=== PATIENT | male | born 1995 | race Caucasian/White ===

== ENCOUNTER 2020-06-30 13:29 | Emergency (ER) | payer OTHER ==
[~2020-06-30] VITALS: Ht 180.3 cm; Wt 77.1 kg
[2020-06-30 13:49] VITALS: BP 127/75
[2020-06-30] MEDS ORDERED: Surgicel 4in x 8in TOPIC ONE (14:00)
--- NOTE | 2020-06-30 14:25 | Emergency Room Report ---
History of Present Illness General Chief Complaint: Upper Extremity Injury Source: Patient Present Illness HPI 25-year-old male with no significant past medical history here with depression injury of the left fifth finger that happened earlier today at work. Avulsion of nail noted. Has full range of motion of the affected side. Denies any tingling or numbness. Has not taken medication for symptom relief. Is not taking any blood thinners. Has full strength in the upper extremities. Is neurovascularly intact. Not up-to-date with tetanus shot and received a tetanus shot today Allergies: Coded Allergies: PINEAPPLE (Verified Allergy, Mild, 06/30/20) COVID-19 Screening Contact w/high risk pt: No Experienced COVID-19 symptoms?: No COVID-19 Testing performed UNARMED SECURITY OFFICER: No Patient History Past Medical History: see triage record Past Surgical History: none Pertinent Family History: none Immunizations: other - tdap today Reviewed Nursing Documentation: PMH: Agreed; PSxH: Agreed Nursing Documentation-PMH Past Medical History: No Stated History Review of Systems All Other Systems: negative except mentioned in HPI Physical Exam Vital Signs Date Time Temp Pulse Resp B/P (MAP) Pulse Ox O2 Delivery O2 Flow Rate FiO2 06/30/20 13:42 98.8 78 16 132/76 (94) 100 Room Air Sp02 EP Interpretation: reviewed, normal General Appearance: no apparent distress, alert, GCS 15, non-toxic Head: normocephalic, atraumatic Eyes: bilateral eye normal inspection, bilateral eye PERRL ENT: hearing grossly normal, normal pharynx, no angioedema, normal voice Neck: full range of motion, supple/symm/no masses Respiratory: chest non-tender, lungs clear, normal breath sounds, speaking full sentences Cardiovascular #1: regular rate, rhythm, no edema Cardiovascular #2: 2+ radial (R), 2+ radial (L) Gastrointestinal: soft Rectal: deferred Musculoskeletal: back normal, tender - Left fifth finger at PIP Neurologic: alert, motor strength/tone normal, oriented x3, sensory intact, responsive, speech normal Psychiatric: judgement/insight normal, memory normal, mood/affect normal, no suicidal/homicidal ideation Skin: laceration - Avulsion laceration left fifth finger Lymphatic: no adenopathy Procedures Laceration/Wound Repair Laceration/Wound Repair : Consent: Verbal Wound Location: upper extremity - Left fifth finger Wound's Depth, Shape: nail-avulsed Wound Length (cm): 1 Betadine Prep?: Yes Wound Repaired With: Dermabond Layer Closure?: Yes Sterile Dressing Applied?: Yes Splint Applied?: Yes Type of Splint Applied: Mental Sling Applied?: No Patient Tolerated: Well Complications: None Medical Decision Making PA Attestation All diagnoses and treatment plans were reviewed and discussed with my supervising physician Dr. Hooker Diagnostic Impression: Primary Impression: Avulsion fracture of distal phalanx of finger Additional Impression: Finger laceration ER Course 25-year-old male with no significant past medical history here with depression injury of the left fifth finger that happened earlier today at work. Avulsion of nail noted. Has full range of motion of the affected side. Denies any tingling or numbness. Has not taken medication for symptom relief. Is not taking any blood thinners. Has full strength in the upper extremities. Is neurovascularly intact. Not up-to-date with tetanus shot and received a tetanus shot today Ddx considered but are not limited to : Superficial laceration, deep laceration, tendon involvement with laceration, laceration with foreign body, finger sprain versus fracture Vital signs: are WNL, pt. is afebrile H&PE are most consistent with: Avulsion fracture distal phalanx of finger, finger laceration ORDERS: Finger x-ray, Augmentin, ibuprofen ED INTERVENTIONS: Wound closure, splint applied DISCHARGE: At this time pt. is stable for d/c to home. Will provide printed patient care instructions, and any necessary prescriptions. Care plan and follow up instructions have been discussed with the patient prior to discharge. Patient to follow-up primary doctor and extension service specialist, take medication as directed, if worsening symptoms return GENERAL: This is a well-nourished, well-developed patient, in no apparent distress. Emergency room Other X-Ray Diagnostic Results Other X-Ray Diagnostic Results : X-Ray ordered: Left finger # of Views/Limited Vs Complete: 3 View Indication: Pain EP Interpretation: Yes GRACE Xray: Interpretation reviewed, by supervising MD, and agrees with findings. Interpretation: other - Avulsion fracture left fifth finger Impression: Other - Finger fracture Electronically Signed by: Lorenzo Nolasco PA-C Last Vital Signs Date Time Temp Pulse Resp B/P (MAP) Pulse Ox O2 Delivery O2 Flow Rate FiO2 06/30/20 13:49 98.8 76 18 127/75 98 Room Air Disposition: HOME, SELF-CARE Condition: Stable Scripts Ibuprofen (Ibu) 800 Mg Tablet 800 MG PO TID, #30 TAB Prov: Lorenzo Parekh 06/30/20 Amoxicillin/Potassium Clav 875-125* (AUGMENTIN 875-125 TABLET*) 1 Each Tablet 1 TAB ORAL TWICE A DAY for 7 Days, #14 TAB Prov: Lorenzo Parekh 06/30/20 Referrals: NOT CHOSEN IPA/,REFERRING (PCP) Patient Instructions: Finger Fracture, [id number], Laceration Care, Adult, [id number] Additional Instructions: Take medication as directed, follow primary care provider, if worsening symptoms return to the emergency room Lorenzo Parekh Jun 30, 2020 14:25
[2020-06-30] MEDS ORDERED: AUGMENTIN 875-1 EAC1 ORAL (14:28)
[2020-06-30] MEDS ORDERED: IBU800 MG PO (14:28)
[2020-06-30] MEDS ORDERED: Tetanus/Diptheria/Pertussis IM ONE (14:30)
[2020-06-30 14:56] VITALS: BP 125/78
--- NOTE | 2020-06-30 18:02 | Diagnostic Imaging Report ---
Indication: Trauma, pain Technique: 3 views of the left fifth finger Comparison: none Findings: There is a comminuted fracture of the distal phalanx. Small density at the radial aspect may represent a small bone fragment or a foreign body. There is evidence of traumatic amputation of the soft tissue of the terminal tuft. No other fractures. No dislocation. Impression: Positive for fifth terminal tuft fracture Cannot rule out small radiopaque foreign body Evidence of traumatic soft tissue amputation
== END 2020-06-30 14:57 | disposition home or self-care (01) ==
LOC: EMR 14:06
DX: S62.637A Displaced fracture of distal phalanx of left little finger, initial encounter for closed fracture (principal); S61.317A Laceration without foreign body of left little finger with damage to nail, initial encounter; Z91.018 Allergy to other foods; X58.XXXA Exposure to other specified factors, initial encounter; Y93.9 Activity, unspecified; Y92.9 Unspecified place or not applicable
CPT/HCPCS: 90471; 90715; 99283